=== PATIENT | male | born 1990 | race Caucasian/White ===

== ENCOUNTER 2021-10-21 16:31 | Outpatient (CLI) | payer OTHER ==
--- NOTE | 2021-10-21 22:49 | Ultrasound Report ---
PROCEDURE: Abdomen Limited INDICATIONS: ABN LIVER ENZYMES, FATTY LIVER TECHNIQUE: Real-time focused scanning was performed of the abdomen, with image documentation. COMPARISON: None available FINDINGS: The liver is mildly enlarged measuring 20.8 cm in length. The parenchyma is mild to modera tely hyperechoic and slightly coarse. A cystic lesion is present in the right hepatic lobe measuring 1.8 x 1.9 x 2.0 cm. Patchy relative hypoechogenicity is seen in the gallbladder fossa. The liver mónica in is relatively smooth. No intrahepatic biliary dilatation. The extrahepatic common duct is normal c aliber at 3 mm. The gallbladder is normal without stones, sludge, wall thickening, or pericholecystic fluid. The visible portion of the right kidney is normal. Kidney measures 12 cm in length and the cortex is normal thickness and echogenicity. No hydronephrosis. No free fluid in the right upper quadrant. IMPRESSION: 1. Mild hepatomegaly and mild to moderate hepatic steatosis. 2. Right lobe liver cyst. 3. Normal gallbladder. Reviewed by: Cami Murry MD on 10/21/2021 10:48 PM PST Approved by: Cami Murry MD on 10/21/2021 10:48 PM PST Station ID: [id number]
== END 2021-10-21 16:32 | disposition home or self-care (01) ==
LOC: DI 16:31
PROVIDERS: ATTEND Physician Assistant
DX: R94.5 Abnormal results of liver function studies (principal); K76.0 Fatty (change of) liver, not elsewhere classified; K76.89 Other specified diseases of liver

== ENCOUNTER 2024-07-20 06:34 | Outpatient (CLI) | payer OTHER | END 2024-07-20 06:35 | disposition critical access hospital (66) | LOC: EMS 06:34 | DX: R10.9 Unspecified abdominal pain (principal); V49.40XA Driver injured in collision with unspecified motor vehicles in traffic accident, initial encounter; Y92.414 Local residential or business street as the place of occurrence of the external cause; Y93.I9 Activity, other involving external motion | CPT/HCPCS: A0425; A0429 ==

== ENCOUNTER 2024-07-20 06:57 | Emergency (ER) | payer OTHER ==
[2024-07-20 07:14] VITALS: BP 148/96; O2SAT 99
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
== END 2024-07-20 08:22 | disposition home or self-care (01) ==
LOC: EDUNIT# → ED 06:57
DX: S16.1XXA Strain of muscle, fascia and tendon at neck level, initial encounter (principal); V49.40XA Driver injured in collision with unspecified motor vehicles in traffic accident, initial encounter; Y92.410 Unspecified street and highway as the place of occurrence of the external cause
CPT/HCPCS: 99283